=== PATIENT | male | born 1970 | race Hispanic/Latino ===

== ENCOUNTER 2017-09-29 01:43 | Observation (INO) | payer BC ==
[2017-09-29 01:53] VITALS: TEMP 98.1
--- NOTE | 2017-09-29 02:33 | ED PDOC ---
HPI: Head Injury Chief Complaint (Provider): "i blacked out and hit my head" History Per: Patient History/Exam Limitations: no limitations Additional Complaint(s): 47 y/o male, with no significant medical hx presents for evaluation of syncopal episode and head laceration. Syncope: pt reports he was in a state of good health today. Flew in from [place] with his family and had no complaints. Currently being treated for gastroenteritis with cipro/promethazine he was prescribed in [place]. Tolerated PO intake without issue. No prodromal symptoms prior to syncopal episode, only a mild tinnitus. LOC was approx several seconds, where he either hit his head on his bed frame or drinking glass. Denies glass breaking or foreign body sensation. No post-syncopal confusion, no vision changes, focal neurological deficits, numbness/tingling. No cardiac hx. Denies ETOH/drug abuse today. Head Laceration: occurred during syncopal episode. Hit head against drinking glass or bed post but does not remember which. Located on forehead. Bleeding stopped with application of pressure. PMD: Denies ALL: NKDA FamilyHx: no known hx of cardiac <Guero Maldonado - Last Filed: 09/30/17 08:41> <Flori Arenas - Last Filed: 09/30/17 17:46> Time Seen by Provider: 09/29/17 02:01 Chief Complaint (Nursing): Trauma Supervising Attending Note - Supervising Attending Note The Documented history was done by the: Physician Phd Internship, Attending Physician The documented physical exam was done by the: Physician Phd Internship, Attending Physician The documented procedures were done by the: Physician Phd Internship, Attending Physician EM CAVEAT: Acuity of Condition - Attestation: I have personally seen and examined this patient.: Yes I have fully participated in the care of the patient.: Yes I have reviewed all pertinent clinical information, including history, physical exam and plan: Yes <Flori Arenas - Last Filed: 09/30/17 17:46> Past Medical History Reviewed: Historical Data, Nursing Documentation, Vital Signs Vital Signs: Last Vital Signs Temp 98.1 F 09/29/17 01:49 Pulse 92 H 09/29/17 01:49 Resp 19 09/29/17 01:49 BP 130/85 09/29/17 01:49 Pulse Ox 98 09/29/17 01:49 - Family History Family History: States: Unknown Family Hx <Guero Maldonado - Last Filed: 09/30/17 08:41> Reviewed: Historical Data Vital Signs: Last Vital Signs Temp 98.1 F 09/29/17 01:49 Pulse 70 09/29/17 14:30 Resp 18 09/29/17 14:30 BP 120/71 09/29/17 14:30 Pulse Ox 98 09/30/17 08:41 - Medical History PMH: No Chronic Diseases - Surgical History Surgical History: No Surg Hx <Flori Arenas A - Last Filed: 09/30/17 17:46> - Home Medications Home Medications: Ambulatory Orders Medication Instructions Recorded Acetaminophen [Tylenol 325mg tab] 650 mg PO Q6 PRN tab 09/29/17 Ciprofloxacin [Cipro] 500 mg PO BID 09/29/17 Promethazine [Phenergan Tab] 25 mg PO Q6 PRN 09/29/17 - Allergies Allergies/Adverse Reactions: Allergies Allergy/AdvReac Type Severity Reaction Status Date / Time No Known Allergies Allergy Verified 09/29/17 01:49 Review of Systems ROS Statement: Except As Marked, All Systems Reviewed And Found Negative <Guero Maldonado - Last Filed: 09/30/17 08:41> ROS Statement: Except As Marked, All Systems Reviewed And Found Negative <Flori Arenas A - Last Filed: 09/30/17 17:46> Physical Exam - Reviewed Nursing Documentation Reviewed: Yes Vital Signs Reviewed: Yes - Physical Exam Appears: Positive for: Well, Non-toxic, No Acute Distress Head Exam: Positive for: NORMOCEPHALIC. Negative for: ATRAUMATIC (approx 6 cm laceration located on forehead. 6-7mm depth. ), NORMAL INSPECTION Skin: Positive for: Warm, Dry Eye Exam: Positive for: Normal appearance, EOMI, PERRL. Negative for: Conjunctival injection, Scleral icterus Neck: Positive for: Normal, Painless ROM, Supple. Negative for: Decreased ROM Cardiovascular/Chest: Positive for: Regular Rate, Rhythm. Negative for: Chest Non Tender, Edema, Gallop, JVD, Murmur Respiratory: Positive for: Normal Breath Sounds. Negative for: Decreased Breath Sounds, Accessory Muscle Use, Crackles, Rales, Rhonchi Pulses-Radial (L): 2+ Pulses-Radial (R): 2+ Gastrointestinal/Abdominal: Positive for: Normal Exam, Bowel Sounds (normal ), Soft. Negative for: Tenderness Extremity: Positive for: Normal ROM. Negative for: Tenderness, Pedal Edema, Calf Tenderness DTR - Bicep (R): 2+ DTR - Bicep (L): 2+ DTR - Knee (R): 2+ DTR - Knee (L): 2+ Neurologic/Psych: Positive for: Alert, grain elevator worker II-XII, Oriented, Gait (normal ). Negative for: Motor/Sensory Deficits, Cerebellar Tests, Aphasia <Guero Maldonado - Last Filed: 09/30/17 08:41> - Reviewed Nursing Documentation Reviewed: Yes <Flori Arenas - Last Filed: 09/30/17 17:46> - Laboratory Results Result Diagrams: 09/29/17 02:50 09/29/17 02:50 - ECG ECG: Positive for: Interpreted By Me ECG Rhythm: Positive for: Normal QRS, Normal ST Segment, Sinus Rhythm Interpretation Of ECG: NSR, 66bpm, no axis deviation, IA/QTc within normal limits. No acute ST- changes. O2 Sat by Pulse Oximetry: 98 - Progress ED Course And Treament: syncope/head trauma/laceration CBC: wnl CMP: wnl Troponin I: <0.0120 EKG: as reported above noncontrast head CT suture repair: wound area was cleaned and prepped in sterile fashion. area was anesthetized with 2% lidocaine. 2 subcutaneous sutures were inserted using 4-0 Monocryl. 5 sutures were inserted via simple interrupted technique with 5-0 Monocryl. Pt tolerated the procedure well. He was observed for several minutes after and had no complaints. CT: FINDINGS: Brain: There is right frontal extra-axial collection measuring 4 mm suspicious for small subdural hematoma. Linear high density is seen in the right frontal lobe seen on image 26 series 4 suspicious for subarachnoid hemorrhage and hemorrhagic contusion. Ventricles: Unremarkable. No ventriculomegaly. Bones/joints: Degenerative changes within the TMJ. No acute fracture. Soft tissues: Frontal scalp soft tissue swelling and possible laceration. Sinuses: Patchy sinus disease. Mastoid air cells: Unremarkable. No mastoid effusion. Orbits: The globe and lens are intact. IMPRESSION: BALDEV FUNES | Preliminary Radiology Report BINDER SORTER (QA) DISCREPANCY? If there is a discrepancy between the preliminary and final interpretation, please notify [facility] via [email or web address]. If you do not have access to our QA portal, call our QA team at [phone] CONFIDENTIALITY STATEMENT This report is intended only for the use of the referring physician, and only in accordance with law, If you received this in error, call [phone] Page 2 of 2 There is right frontal extra-axial collection measuring 4 mm suspicious for small subdural hematoma. Linear high density is seen in the right frontal lobe seen on image 26 series 4 suspicious for subarachnoid hemorrhage and hemorrhagic contusion. Thank you for allowing us to participate in the care of your patient. Dictated and Authenticated by: Juanpablo Winchester MD 09/29/2017 4:51 AM Eastern Time ([place] & [place]) neurosurgery consult admit for observation <Guero Maldonado - Last Filed: 09/30/17 08:41> - Laboratory Results Result Diagrams: 09/29/17 02:50 09/29/17 02:50 <Flori Arenas - Last Filed: 09/30/17 17:46> Medical Decision Making Medical Decision Makin Discussed the case with Dr Paredes who recommends observation and repeat CT head in 6 hours. <Flori Arenas - Last Filed: 09/30/17 17:46> Procedures - Time-Out Type of Procedure: Laceration repair Site of Procedure: Forehead Correct Patient (with visual ID + MR# on ID Band): Yes Correct Procedure: Yes Correct Site Marked: Yes X-Ray Marked: No Medication Reconciliation / Bloodwork / Allergies Checked: Yes Physician Name: Dagoberto - Laceration/Wound Repair Forehead Wound Length (cm): 6 Wound's Depth, Shape: into muscle, linear, flap Wound Explored: clean Irrigated w/ Saline (ccs): 100 Betadine Prep?: Yes Anesthesia: 1% Lidocaine Volume Anesthetic (ccs): 5 Wound Repaired With: Sutures Suture Size/Type: 5:0, nylon Number of Sutures: 5 Layer Closure?: Yes Deep Layer Suture Size/Type: 4:0 Number Deep Layer Sutures: 2 Wound Complexity: Intermediate Sterile Dressing Applied?: Yes Splint Applied?: No Sling Applied?: No <Flori Arenas - Last Filed: 09/30/17 17:46> Disposition - Patient ED Disposition Is Patient to be Admitted: Yes - Disposition Disposition Time: 05:30 - Pt Status Changed To: Hospital Disposition Of: Observation <Guero Maldonado - Last Filed: 09/30/17 08:41> Discussed With : Paddy Chavez Doctor Will See Patient In The: ED Counseled Patient/Family Regarding: Studies Performed, Diagnosis - POA Present On Arrival: Falls Or Trauma <Flori Arenas - Last Filed: 09/30/17 17:46> - Clinical Impression Clinical Impression: Subdural hematoma due to concussion, Laceration of head, Syncope - Disposition Condition: FAIR
[2017-09-29 03:10] LABS: HEMOGLOBIN 13.9 g/dL (12.0-18.0); MEAN CELL VOLUME 86.3 fl (80.0-94.0); MEAN CORPUSCULAR HGB CONC 34.7 g/dL (33.0-37.0); RBC 4.64 Mil/uL (4.40-5.90); RED CELL DISTRIBUTION WIDTH 13.1 % (11.5-14.5); WHITE BLOOD COUNT 7.2 K/uL (4.8-10.8)
[2017-09-29] MEDS ORDERED: Tdap Vaccine 0.5 ml Vial (10-64 yrs) IM ONE ×2 (03:11→05:54)
[2017-09-29 03:15] LABS: ALB/GLOB RATIO 1.3 (1.0-2.1); ALT/SGPT 34 U/L (21-72); AST/SGOT 22 U/L (17-59); BLOOD UREA NITROGEN 15 mg/dl (9-20); CALCIUM 8.9 mg/dL (8.4-10.2); GFR AFRICAN-AMERICAN > 60; GFR NON-AFRICAN AMERICAN > 60
[2017-09-29] MEDS: Sodium Chloride 0.9% 1,000 ML IV SCH ×2 (03:16→06:57)
[2017-09-29] MEDS ORDERED: Lidocaine 2% Inj (20ml) ONE (04:04)
[2017-09-29] MEDS ORDERED: Lidocaine 2% Inj (20ml) SC ONE (05:20)
[2017-09-29 06:57] LABS: BARBITURATES, UR NEGATIVE (NEGATIVE); BENZODIAZEPINES, UR NEGATIVE (NEGATIVE); OPIATES, UR NEGATIVE (NEGATIVE); PHENCYCLIDINE, UR NEGATIVE (NEGATIVE)
[2017-09-29 08:37] LABS: INR 1.2 (0.9-1.2); PARTIAL THROMBOPLASTIN TIME 29.1 Seconds (25.6-37.1); PROTHROMBIN TIME 13.6 Seconds (9.8-13.1)
[2017-09-29 09:12] VITALS: RESP 18
--- NOTE | 2017-09-29 10:38 | RAD ---
LEFT SHOULDER SERIES Three views left shoulder been submitted for evaluation of trauma and resulting pain. No prior comparison available. There is no acute fracture or dislocation identified involving the left shoulder. degenerative changes seen the glenohumeral and acromioclavicular joints mildly. Local soft tissues appear diffusely unremarkable no destructive bony lesion identified. IMPRESSION: No acute fracture or dislocation identified. Mild degenerative joint disease as discussed above.
--- NOTE | 2017-09-29 11:01 | CT ---
EXAMINATION PERFORMED: CT head without intravenous contrast. CLINICAL HISTORY: Syncope and collapse COMPARISON EXAMINATIONS: None TECHNIQUE: 2.5 mm axial acquisition and display. Coronal and sagittal reconstructions. Dose report (mGy-cm): 847.31 room Unenhanced study: Coronal and sagittal reconstructed images. FINDINGS: Brain: Questionable small extra-axial fluid collection adjacent to the area of extracranial contusion. Ventricles: No hydrocephalus. Calvarium: Unremarkable. Sinuses: No evidence of acute sinusitis. Mastoid air cells: Unremarkable. Other findings: Extracranial right supraorbital soft tissue contusion. IMPRESSION: Small extra-axial fluid collections/right frontal acute subdural hematoma. Associated extracranial soft tissue contusion. Concordant results (preliminary interpretation) provided by [facility]. Procedure Completed: 04:28 Preliminary ([facility]) Report: Dictated and Authenticated: 04:51 Final Interpretation: 10:59 September 29, 2017.
--- NOTE | 2017-09-29 11:46 | CT ---
HEAD CT WITHOUT CONTRAST 09/29/2017 7:[address] acquisition through the head was performed without intravenous contrast for follow-up of head trauma his a questionable intraparenchymal hemorrhage in prior head CT 09/29/2017 4:19 a.m. as well as possible subdural collection right frontal region as well. Radiation dose: DLP 854.22 mGy-cm. This CT exam was performed using one or more of the following dose reduction techniques: Automated exposure control, adjustment of the mA and/or kV according to patient size, and/or use of iterative reconstruction technique. In the interval, no intraparenchymal hemorrhage is identified this time including the right frontal lobe. Trace subdural or epidural hematoma is difficult to completely exclude at the right frontal anterior pole region with a small right frontal scalp hematoma increased at the same level. No interval cortical edema or mass-effect is appreciated with the white-matter grossly nonfocal as well. The ventricular sulcal and cisternal spaces are stable and unremarkable once again with posterior fossa unremarkable as well. Calvarium remains intact as well as skull base. IMPRESSION: No definite intraparenchymal hemorrhage is appreciated throughout the brain including the right frontal lobe although trace subdural or epidural hematoma is difficult to exclude abutting the inner table at the right frontal region at the same level of an increased right parietal scalp hematoma. Calvarium and skull base remain intact.
[2017-09-29 15:26] VITALS: BP 120/71; PULSE 70
--- NOTE | 2017-09-29 15:45 | CP.PCM.HP ---
History of Present Illness - History of Present Illness History of Present Illness: CC: Syncope This is a 47 year old male with no significant past medical history, who presented to the ED due to syncope and head laceration this morning. The patient states that he recently flew in from [place] with his family and had no complaints. The patient is currently being treated for gastroenteritis with cipro and promethazine; he had been having frequent bouts of nausea, vomiting, and watery diarrhea that have since resolved over the past 24 hours although he relates that he has not been drinking enough water lately. Early this morning he was getting out of bed to get a glass of water and felt very lightheaded and states he passed out. When he woke up less that 30 seconds later he had a laceration on his forehead and thinks he hit his head on a bedpost. He denies any post syncopal confusion, blurriness of vision or vision changes. In the ED, the patient's laceration was sutured. CT of the head was done which showed possible 8 mm subdural hematoma of the frontal lobe. The patient was admitted and placed on observation with q 4 hour neuro checks. Neurosurgery was called and repeated CT scan after approximately [address] scan showed no evidence of subdural hematoma which Dr. Paredes, the neurosurgeon, agreed with. The patient is therefore being discharged in stable condition to home with instructions to return to the ED for any motor or sensory deficits, vision changes, worsening headache, or any further episodes of syncope. Patient denies chest pain, shortness of breath, fevers, chills, headache. All of the patient's and/or family's questions were answered at the bedside. Present on Admission - Present on Admission Any Indicators Present on Admission: No Review of Systems - Review of Systems Review of Systems: A 12 point review of systems was conducted and found to be negative other than what was mentioned in the HPI. Past Patient History - Infectious Disease Hx of Infectious Diseases: None - Past Medical History & Family History Past Medical History?: No Past Family History: Reviewed and not pertinent - Past Social History Smoking Status: Never Smoked Alcohol: Occasional (No recent ETOH use) Drugs: Denies (Denies but + cannabis on u tox) Home Situation {Lives}: With Family - PSYCHIATRIC Hx Substance Use: No - SURGICAL HISTORY Hx Surgeries: No Meds Home Medications: Home Medication List Medication Instructions Recorded Confirmed Type Acetaminophen [Tylenol 325mg tab] 650 mg PO Q6 PRN tab 09/29/17 Rx Allergies/Adverse Reactions: Allergies Allergy/AdvReac Type Severity Reaction Status Date / Time No Known Allergies Allergy Verified 09/29/17 01:49 Physical Exam - Additional Findings Additional findings: Physical exam: Constitutional- cooperative, awake, alert Head- NC, Forehead laceration, horizontal, approximately 4 cm in length, sutures in place. PERRL Eye- PERRL, EOMI ENT- normal exam, MMM. Neck- normal inspection, supple, no JVD Respiratory- CTAB, no wheezes rales rhonchi Cardiovascular- RRR, +S1, +S2 no MRG GI/Abdominal- normal bowel sounds, soft, no mass, no hsm Skin- warm, dry Extremities Exam- normal capillary refill, normal inspection Neurological Exam- alert, awake, oriented Psych- normal mood, normal affect Results - Vital Signs Recent Vital Signs: Last Vital Signs Temp 98.1 F 09/29/17 01:49 Pulse 70 09/29/17 14:30 Resp 18 09/29/17 14:30 BP 120/71 09/29/17 14:30 Pulse Ox 99 09/29/17 14:30 - Labs Result Diagrams: 09/29/17 02:50 09/29/17 02:50 Labs: Laboratory Results - last 24 hr 09/29/17 09/29/17 09/29/17 02:50 02:50 06:18 WBC 7.2 RBC 4.64 Hgb 13.9 Hct 40.0 MCV 86.3 MCH 30.0 MCHC 34.7 RDW 13.1 Plt Count 194 PT INR APTT Sodium 142 Potassium 3.8 Chloride 102 Carbon Dioxide 25 Anion Gap 19 BUN 15 Creatinine 1.1 Est GFR ( Amer) > 60 Est GFR (Non-Af Amer) > 60 Random Glucose 112 H Calcium 8.9 Total Bilirubin 0.5 AST 22 ALT 34 Alkaline Phosphatase 42 Troponin I < 0.0120 Total Protein 6.9 Albumin 4.0 Globulin 3.0 Albumin/Globulin Ratio 1.3 Urine Opiates Screen Negative Urine Methadone Screen Negative Ur Barbiturates Screen Negative Ur Phencyclidine Scrn Negative Ur Amphetamines Screen Negative U Benzodiazepines Scrn Negative U Oth Cocaine Metabols Negative U Cannabinoids Screen Positive H Alcohol, Quantitative < 10 Blood Type Blood Type Confirm Antibody Screen BBK History Checked 09/29/17 09/29/17 09/29/17 07:19 07:20 07:49 WBC RBC Hgb Hct MCV MCH MCHC RDW Plt Count PT 13.6 H INR 1.2 APTT 29.1 Sodium Potassium Chloride Carbon Dioxide Anion Gap BUN Creatinine Est GFR ( Amer) Est GFR (Non-Af Amer) Random Glucose Calcium Total Bilirubin AST ALT Alkaline Phosphatase Troponin I Total Protein Albumin Globulin Albumin/Globulin Ratio Urine Opiates Screen Urine Methadone Screen Ur Barbiturates Screen Ur Phencyclidine Scrn Ur Amphetamines Screen U Benzodiazepines Scrn U Oth Cocaine Metabols U Cannabinoids Screen Alcohol, Quantitative Blood Type O POSITIVE Blood Type Confirm O POSITIVE Antibody Screen Negative BBK History Checked No verified bt Assessment & Plan - Assessment and Plan (Free Text) Plan: ASSESSMENT/PLAN 1) Vasovagal syncope with concern on initial CT scan for subdural bleed, with second CT scan not showing bleed - Observation status - Consultation with Dr. Paredes appreciated - Tylenol PRN for pain due to laceration - IV fluids given in ED - Regular diet - Vitals stable - OK for discharge today as per Dr. Paredes - Return to ED for any change in sx as mentioned in HPI. - Instructed to f/u with a PMD in 1-2 weeks - return to ED or clinic in 5-7 days for suture removal 2) DVT prophylaxis - SCDs during admission
--- NOTE | 2017-09-29 17:09 | CP.PCM.PN ---
Subjective - Date & Time of Evaluation Date of Evaluation: 09/29/17 Time of Evaluation: 17:07 - Subjective Subjective: Pt s/p head injury CT initially read as 4mm sdh Repeat CT does not see this and study read as normal No neurosurgical intervention indicated Pt neurosurgiclly clear Objective - Vital Signs/Intake and Output Vital Signs (last 24 hours): Temp Pulse Resp BP Pulse Ox 98.1 F 70 18 120/71 99 09/29/17 01:49 09/29/17 14:30 09/29/17 14:30 09/29/17 14:30 09/29/17 14:30 - Medications Medications: Current Medications Acetaminophen (Tylenol 325mg Tab) 650 mg PO Q6 PRN PRN Reason: Pain, Mild (1-3) Sodium Chloride (Sodium Chloride 0.9%) 1,000 mls @ 999 mls/hr IV .Q1H1M ARMANDO Stop: 09/30/17 02:56 Last Admin: 09/29/17 06:57 Dose: Not Given Ondansetron HCl (Zofran Odt) 4 mg PO Q6 PRN PRN Reason: Nausea/Vomiting - Labs Labs: 09/29/17 02:50 09/29/17 02:50 PT 13.6 Seconds (9.8-13.1) H 09/29/17 07:20 INR 1.2 (0.9-1.2) 09/29/17 07:20 APTT 29.1 Seconds (25.6-37.1) 09/29/17 07:20
[2017-09-30 08:37] VITALS: O2SAT 98
--- NOTE | 2017-09-30 11:51 | CARD ---
APPROVED REPORT EKG Measurement Heart [id number] <Conclusion> Normal sinus rhythm Normal ECG
== END 2017-09-29 15:05 | disposition home or self-care (01) ==
LOC: H.ER 01:43 → H.ERHOLD 06:46
PROVIDERS: ADMIT Internal Medicine; ATTEND Internal Medicine
DX: S01.81XA Laceration without foreign body of other part of head, initial encounter (principal); H93.19 Tinnitus, unspecified ear; K52.9 Noninfective gastroenteritis and colitis, unspecified; Z23 Encounter for immunization; W18.39XA Other fall on same level, initial encounter; Y92.009 Unspecified place in unspecified non-institutional (private) residence as the place of occurrence of the external cause
CPT/HCPCS: 12052; 70450; 73030; 80053; 84484; 85027; 85610; 85730; 86850; 86900; 90471; 90715; 93005; 96372; 96374; 99285; G0378; G0480; J1885; J7040